=== PATIENT | male | born 1970 | race Caucasian/White ===

== ENCOUNTER 2021-04-24 19:44 | Inpatient (IN) | payer BC ==
[~2021-04-24] VITALS: Ht 185.4 cm; Wt 106.2 kg
[~2021-04-24 19:44] MED LIST: ALBU90OI INH; CODGUAEL PO; LEVFLO500 PO; Mucinex600 MG PO
[2021-04-24 20:21] LABS: BASOPHILS ABSOLUTE AUTO 0.05 K/mm3 (0.00-0.23); BASOPHILS PERCENT AUTO 1 % (0-2); EOSINOPHILS ABSOLUTE AUTO 0.13 K/mm3 (0.00-0.68); EOSINOPHILS PERCENT AUTO 1 % (0-6); Hematocrit 43.7 % (37.0-53.0); Hemoglobin 15.1 g/dL (13.5-17.5); IMMATURE GRAN ABSOLUTE AUTO 0.02 K/mm3 (0.00-0.10); IMMATURE GRAN PERCENT AUTO 0 % (0-1); LYMPHOCYTES ABSOLUTE AUTO 4.31 K/mm3 (0.84-5.20); LYMPHOCYTES PERCENT AUTO 45 % (21-46); MONOCYTES PERCENT AUTO 8 % (4-13); Mean Corpuscular HGB 31.4 pg (26.0-34.0); Mean Corpuscular HGB Conc 34.6 g/dL (31.5-36.5); Mean Corpuscular Volume 91 fL (80-100); Mean Platelet Volume 10.2 fL (9.1-12.4); NEUTROPHILS ABSOLUTE AUTO 4.38 K/mm3 (1.96-9.15); NEUTROPHILS PERCENT AUTO 45 % (41-73); Platelet Count 255 K/mm3 (150-400); RDW Coefficient Variation 12.7 % (11.7-14.2); RDW Standard Deviation 42.6 fL (35.1-46.3); Red Blood Cell Count 4.81 M/mm3 (4.30-5.90); White Blood Cell Count 9.69 K/mm3 (4.00-11.30)
[2021-04-24 20:41] LABS: Alanine Aminotransfer (ALT/SGP 33 U/L (12-78); Albumin, Blood 3.5 g/dL (3.4-5.0); Alk Phos 49 U/L (50-136); Anion Gap 7 mmol/L (6-16); Aspartate Aminotrans (AST/SGOT 25 U/L (12-37); Bilirubin, Total 0.5 mg/dL (0.1-1.0); Blood Urea Nitrogen 14 mg/dL (8-24); Bun/Creatinine Ratio 12.5 (12.0-20.0); CO2, Blood 27 mmol/L (21-32); Calcium, Blood 8.8 mg/dL (8.5-10.1); Chloride, Blood 105 mmol/L (98-108); Creatinine, Blood 1.12 mg/dL (0.60-1.20); Globulin, Blood 3.5 g/dL (2.2-4.0); Glomerular Filtration Rate >60 (60-); Glucose, Blood 122 mg/dL (70-99); Potassium, Blood 3.3 mmol/L (3.5-5.5); Sodium, Blood 139 mmol/L (136-145); Troponin I 0.019 ng/mL (0.000-0.040)
[2021-04-24 20:56] LABS: PCO2 Arterial 36.8 mmHg (35-45); PO2 Arterial 119 mmHg (80-100); pH Blood Arterial 7.27 (7.35-7.45)
[2021-04-24 21:11] LABS: SARS-Cov-2 (COVID-19) PCR, MMC NEGATIVE (NEGATIVE)
--- NOTE | 2021-04-24 22:10 | NUR ---
PT ARRIVED TO ICU FROM [facility] VIA ICU BED. PT RECEIVED STENT TO PROXIMAL LAD, R GROIN SITE CDI. PT REMINDED ABOUT NEED TO LAY FLAT FOR 6 HOURS POST PROCEDURE, STRUGGLING TO GET COMFORTABLE. PILLOWS USED TO HELP TURN PT. PT ALERT AND ORIENTED. STATES CHEST PAIN 08/27. ARRIVED ON RA, SPO2 >90%. HR 70-80'S SINUS ON MONITOR, SBP 115'S. ABD SOFT, ACTIVE BOWEL TONES. URINAL AT BEDSIDE. PULSES PALPABLE IN ALL EXTREMITIES, CAP REFILL WNL. PT VERY ANXIOUS ABOUT HOSPITALIZATION. DENIES NEEDS AT THIS TIME. CALL LIGHT WITHIN REACH.
[2021-04-24 22:42] LABS: BASOPHILS ABSOLUTE AUTO 0.05 K/mm3 (0.00-0.23); BASOPHILS PERCENT AUTO 0 % (0-2); EOSINOPHILS ABSOLUTE AUTO 0.04 K/mm3 (0.00-0.68); EOSINOPHILS PERCENT AUTO 0 % (0-6); Hematocrit 42.3 % (37.0-53.0); Hemoglobin 14.6 g/dL (13.5-17.5); IMMATURE GRAN ABSOLUTE AUTO 0.05 K/mm3 (0.00-0.10); IMMATURE GRAN PERCENT AUTO 0 % (0-1); LYMPHOCYTES ABSOLUTE AUTO 1.22 K/mm3 (0.84-5.20); LYMPHOCYTES PERCENT AUTO 10 % (21-46); MONOCYTES ABSOLUTE AUTO 0.55 K/mm3 (0.16-1.47); MONOCYTES PERCENT AUTO 4 % (4-13); Mean Corpuscular HGB 31.5 pg (26.0-34.0); Mean Corpuscular HGB Conc 34.5 g/dL (31.5-36.5); Mean Corpuscular Volume 91 fL (80-100); Mean Platelet Volume 10.1 fL (9.1-12.4); NEUTROPHILS ABSOLUTE AUTO 10.95 K/mm3 (1.96-9.15); NEUTROPHILS PERCENT AUTO 85 % (41-73); Platelet Count 227 K/mm3 (150-400); RDW Coefficient Variation 12.8 % (11.7-14.2); RDW Standard Deviation 42.4 fL (35.1-46.3); Red Blood Cell Count 4.64 M/mm3 (4.30-5.90); White Blood Cell Count 12.86 K/mm3 (4.00-11.30)
[2021-04-24 22:50] LABS: International Normalized Ratio 1.08; Prothrombin Time Results 11.3 Sec (9.7-11.5)
[2021-04-24 23:08] LABS: Anion Gap 6 mmol/L (6-16); Blood Urea Nitrogen 14 mg/dL (8-24); CO2, Blood 28 mmol/L (21-32); Calcium, Blood 8.6 mg/dL (8.5-10.1); Chloride, Blood 104 mmol/L (98-108); Creatinine, Blood 1.08 mg/dL (0.60-1.20); Glomerular Filtration Rate >60 (60-); Glucose, Blood 141 mg/dL (70-99); Potassium, Blood 3.6 mmol/L (3.5-5.5); Sodium, Blood 138 mmol/L (136-145)
[2021-04-24 23:09] LABS: CPK Creatine Kinase 3637 U/L (39-308)
[2021-04-24 23:23] LABS: Creatine Kinase MB Index 2.9 (0.0-4.0)
--- NOTE | 2021-04-25 05:51 | NUR ---
SHIFT SUMMARY PT HAD MINIMAL SLEEP SINCE ARRIVAL TO UNIT. COMPLAINTS OF BACK PAIN FROM LAYING IN BED, ATTEMPTS MADE TO REPOSITION USING PILLOWS UNSUCCESSFUL. PRN FENTANYL GIVEN ONCE THIS SHIFT. PT CURRENTLY NPO, TOLERATING OCCASIONAL SIPS OF WATER. HR 70-80'S SINUS ON MONITOR, SBP 130-140'S. R GROIN SITE REMAINS CDI. PULSES PALPABLE IN ALL EXTREMITIES, CAP REFILL WNL, ABLE TO MOVE ALL EXTREMITIES. PT ANXIOUS WITH HOSPITALIZATION. COMPLAINTS OF 2-3/10 DULL, NAGGING CHEST PAIN.
[2021-04-25 06:53] LABS: Alanine Aminotransfer (ALT/SGP 105 U/L (12-78); Albumin, Blood 3.5 g/dL (3.4-5.0); Alk Phos 51 U/L (50-136); Aspartate Aminotrans (AST/SGOT 629 U/L (12-37); Bilirubin, Direct 0.1 mg/dL (0.0-0.3); Bilirubin, Indirect 0.4 mg/dL (0.1-0.7); Bilirubin, Total 0.5 mg/dL (0.1-1.0); CHOL/HDL RATIO 4.7; Cholesterol 212 mg/dL (50-200); Creatinine, Blood 0.91 mg/dL (0.60-1.20); Globulin, Blood 3.5 g/dL (2.2-4.0); Glutamyl Transpeptidase, GGT 48 U/L (15-85); HDL Cholesterol 45 mg/dL (>39); LDL/HDL RATIO 3.1; Low Density Lipoprotein Chol 139 mg/dL (0-110); Thyroid Stimulating Hormone 0.213 uIU/mL (0.360-4.800); Triglycerides 140 mg/dL (30-160); Very Low Density Lipoprot Chol 28 mg/dL (6-32)
[2021-04-25 07:33] LABS: Creatine Kinase MB 181.9 ng/mL (0.0-3.6); Creatine Kinase MB Index 3.6 (0.0-4.0)
--- NOTE | 2021-04-25 08:10 | NUR ---
INITIAL ASSESSMENT PATIENT ALERT AND ORIENTED X 4, AFEBRILE. NO COMPLAINTS OF PAIN. PATIENT ON RA WHILE AWAKE AND ON 2 L NC WITH SLEEP DESATS INTO MID 80S WHILE SLEEPING. LUNGS CLEAR. PATIENT IN SR, HR 70S TO 80S. SBP IN THE 140S. GI WNL. WNL. R GROIN SPOOL CARRIER ACCESS SITE NOTED; TEGADERM IN PLACE. NO BLEEDING NOTED. SMALL HEMATOMA NOTED. SITE TENDER. IVS FLUSHED AND SALINE LOCKED. BED LOW, CALL LIGHT IN REACH. WILL CONTINUE TO MONITOR PATIENT FREQUENTLY THROUGHOOUT SHIFT.
--- NOTE | 2021-04-25 09:15 | NUR ---
DR. GODOY AND DR. CRAIN IN TO SEE PATIENT. INFORMED THAT PATIENT HAD 3 RUNS OF VTACH ON UNDERWEAR WELTER PER UNDERWEAR WELTER RN. INFORMED THAT PATIENT DESATTED TO MID 80S WITH SLEEP ON UNDERWEAR WELTER AND THUS PLACED ON 2 L NC DURING SLEEP. INFORMED THAT PATIENT HAS SMALL HEMATOMA AT R GROIN TELEPHONE QUOTATION CLERK ACCESS SITE. ORDER OBTAINED TO INCREASE TO CARDIAC DIET AFTER AM ABD US. ORDER RECEIVED TO CHANGE PATIENT TO PCU STATUS.
[2021-04-25 11:10] LABS: U Amphetamine Screen Not Detected; U Barbituate Screen Not Detected; U Benzodiazapine Screen DETECTED; U Buprenorphine Screen Not Detected; U Cannabinoids Screen Not Detected; U Cocaine Screen Not Detected; U Methadone Screen Not Detected; U Methamphetamine Screen Not Detected; U Opiates Screen DETECTED; U Oxycodone Screen Not Detected; U Phencyclidine Screen Not Detected; U Propoxyphene Screen Not Detected
--- NOTE | 2021-04-25 12:00 | NUR ---
PATIENT HAS TEMP OF 99.6 DEGREES FAHRENHEIT. PATIENT STATES HE JUST DRANK HOT COFFEE. HR IN THE 80S. SBP 150S. R GROIN SITE STILL HAS SMALL HEMATOMA BUT DOES FEEL SOFTER THAN LAST CHECK. PATIENT WALKING AROUND SBA WITHOUT ANY DIFFICULTY OR INCREASE IN SOB/ PAIN. NO OTHER ACUTE CHANGES TO NOTE ON AT THIS TIME. WILL CONTINUE TO MONITOR.
--- NOTE | 2021-04-25 14:23 | NUR ---
SHIFT SUMMARY PATIENT REMAINED ALERT AND ORIENTED X 4. PATIENT HAD MAX TEMP OF 99.6 DEGREES FAHRENHEIT BUT STATED THAT IT WAS PROBABLY BECAUSE HE "HAD HOT COFFEE". PATIENT SATTING 90% AND GREATER ON RA WHILE AWAKE. PATIENT IN SR, HR 70S TO 80S. SBP 140S TO 150S. NO BM THIS SHIFT. PATIENT HAS GOOD APPETITE AND HAS TOLERATED CARDIAC DIET WELL. WNL; PATIENT EITHER USES URINAL OR WALKS SBA TO TOILET. R GROIN SITE REMAINS WITH SMALL HEMATOMA BUT IS SLIGHTLY IMPROVED FROM THIS AM. IVS REMAINED SALINE LOCKED. ECHO PERFORMED THIS SHIFT. ABD US PERFORMED THIS SHIFT. U-TOX SENT TO LAB. NICODERM PATCH APPLIED TO HELP WITH CIGARETTE AND CHEW TOBACCO CRAVINGS. SPOUSE IN VISITING WITH PATIENT AT THIS TIME. PATIENT WILL BE TRANSFERRING TO PCU, ROOM 8 SHORTLY.
[2021-04-25 14:35] LABS: Alanine Aminotransfer (ALT/SGP 107 U/L (12-78); Albumin, Blood 3.5 g/dL (3.4-5.0); Alk Phos 51 U/L (50-136); Anion Gap 6 mmol/L (6-16); Aspartate Aminotrans (AST/SGOT 512 U/L (12-37); Bilirubin, Total 0.7 mg/dL (0.1-1.0); Blood Urea Nitrogen 14 mg/dL (8-24); Bun/Creatinine Ratio 14.6 (12.0-20.0); CO2, Blood 27 mmol/L (21-32); Calcium, Blood 8.9 mg/dL (8.5-10.1); Chloride, Blood 108 mmol/L (98-108); Creatinine, Blood 0.96 mg/dL (0.60-1.20); Globulin, Blood 3.5 g/dL (2.2-4.0); Glomerular Filtration Rate >60 (60-); Glucose, Blood 133 mg/dL (70-99); Potassium, Blood 4.2 mmol/L (3.5-5.5); Sodium, Blood 141 mmol/L (136-145); Thyroxine (T4) 8.5 ug/dL (4.5-12.1); Triiodothyronine, Free 2.34 pg/mL (2.18-3.98)
--- NOTE | 2021-04-25 14:49 | NUR ---
PATIENT TRANSFERRED TO PCU, ROOM 08. SPOUSE FOLLOWED.
[2021-04-25 15:26] LABS: Creatine Kinase MB 99.1 ng/mL (0.0-3.6); Creatine Kinase MB Index 2.8 (0.0-4.0)
--- NOTE | 2021-04-25 15:45 | NUR ---
ASSUMPTION OF CARE NOTE PT ALERT AND ORIENTED X4. ELVIS W/ PT UPON TRANSFER AND WITH PT NOW. SPO2>90% RA, BP 141/102. TOA APPROX. 1520. PT DENIED CHEST PAIN. HE IS PLEASANT AND COOPERATIVE WITH CARE. RIGHT GROIN SITE IS DRESSED W/ CHG DRESSING. SMALL HEMATOMA PER REPORT HAS BEEN UNCHANGED ALL DAY. SITE FIRM UPON PALPATION. PT REPORTS SLIGHT TENDERNESS TO SITE. PEDAL PULSES STRONG BILATERALLY. WILL CONTINUE TO MONITOR.
--- NOTE | 2021-04-25 17:35 | NUR ---
SHIFT SUMMARY PT ALERT AND ORIENTED X 4. PLEASANT AND COOPERATIVE W/ CARE. IS AT BEDSIDE. NO CHEST PAIN REPORTED. PT ON RA, SPO2 >90%, VITAL SIGNS STABLE. THIS NURSE HAD DISCUSSION W/ PATIENT ABOUT SMOKING CESSATION AND PT APPEARED TO BE RECEPTIVE TO INFORMATION. PT IS ABLE TO AMBULATE ON OWN TO BATHROOM PER REPORT BUT HAS REMAINED IN BED SINCE TOA TO PCU ROOM. PT EATING DINNER NOW AND NO EVIDENCE OF NAUSEA. NO OTHER ACUTE CHANGES NOTED. WILL CONTINUE TO MONITOR UNTIL REPORT GIVEN.
--- NOTE | 2021-04-25 18:27 | NUR ---
ASSESSMENT NOTE RIGHT GROIN ACCESS SITE REMAINS COVERED W/ CHG DRESSING, HEMATOMA FELT UPON PALPATION. HEMATOMA WAS PRESENT PER REPORT FROM ICU NURSE. PT REPORTED TENDERNESS AT SITE BUT NOT PAINFUL.
[2021-04-26 04:10] LABS: BASOPHILS ABSOLUTE AUTO 0.04 K/mm3 (0.00-0.23); BASOPHILS PERCENT AUTO 0 % (0-2); EOSINOPHILS ABSOLUTE AUTO 0.07 K/mm3 (0.00-0.68); EOSINOPHILS PERCENT AUTO 1 % (0-6); Hematocrit 40.8 % (37.0-53.0); Hemoglobin 14.1 g/dL (13.5-17.5); IMMATURE GRAN ABSOLUTE AUTO 0.05 K/mm3 (0.00-0.10); IMMATURE GRAN PERCENT AUTO 1 % (0-1); LYMPHOCYTES PERCENT AUTO 17 % (21-46); MONOCYTES ABSOLUTE AUTO 0.63 K/mm3 (0.16-1.47); MONOCYTES PERCENT AUTO 6 % (4-13); Mean Corpuscular HGB 31.5 pg (26.0-34.0); Mean Corpuscular HGB Conc 34.6 g/dL (31.5-36.5); Mean Corpuscular Volume 91 fL (80-100); Mean Platelet Volume 10.6 fL (9.1-12.4); NEUTROPHILS ABSOLUTE AUTO 7.58 K/mm3 (1.96-9.15); NEUTROPHILS PERCENT AUTO 75 % (41-73); Platelet Count 189 K/mm3 (150-400); RDW Standard Deviation 43.2 fL (35.1-46.3); Red Blood Cell Count 4.47 M/mm3 (4.30-5.90); White Blood Cell Count 10.07 K/mm3 (4.00-11.30)
[2021-04-26 04:32] LABS: Alanine Aminotransfer (ALT/SGP 79 U/L (12-78); Albumin/Globulin Ratio 0.9 (0.8-1.8); Alk Phos 44 U/L (50-136); Anion Gap 5 mmol/L (6-16); Aspartate Aminotrans (AST/SGOT 281 U/L (12-37); Blood Urea Nitrogen 11 mg/dL (8-24); Bun/Creatinine Ratio 10.8 (12.0-20.0); CO2, Blood 28 mmol/L (21-32); Calcium, Blood 8.6 mg/dL (8.5-10.1); Chloride, Blood 107 mmol/L (98-108); Creatinine, Blood 1.02 mg/dL (0.60-1.20); Globulin, Blood 3.3 g/dL (2.2-4.0); Glomerular Filtration Rate >60 (60-); Glucose, Blood 146 mg/dL (70-99); Potassium, Blood 3.6 mmol/L (3.5-5.5); Sodium, Blood 140 mmol/L (136-145); Total Protein, Blood 6.3 g/dL (6.4-8.2)
--- NOTE | 2021-04-26 05:59 | NUR ---
Shift Summary Pt c/o lack of sleep from the previous night and requested as little interaction as possible to promote sleep, every attempt was made to cluster care to minimize interruptions. Pt denied chest pain, pain, and discomfort. Pt ambulated self to restroom. Pt requested a snack at approximately 0200, but otherwise was able to sleep for a majority of the night. VSS, R. femoral site unchanged, no acute changes noted.
--- NOTE | 2021-04-26 10:58 | NUR ---
ASSUMPTION OF CARE NOTE/AM NOTE PT IS ALERT AND ORIENTED X 4. HE IS PLEASANT AND COOPERATIVE WITH CARE. PT ON RA, SPO2 UPPER 90'S. PT ON TELE AND PER REPORT IS SR 73. PT ABLE TO AMBULATE TO BATHROOM ON OWN AND TOOK SHOWER. PT AMBULATED THROUGH HALLS THIS AM. DURING AMBULATION IN HALLS, ST ELEVATION REPORTED FROM TELE; EKG DONE SHOWING NORMAL SR AND IS IN CHART. PT HAS DENIED CHEST PAIN/PRESSURE WELL SHORTNESS OF BREATH. PT DENIED ABDOMINAL DISCOMFORT, NAUSEA/VOMITTING. PT NOW MEDICAL STATUS W/ TELE, ON CARDIAC LOW SODIUM DIET, AND HAS RIGHT IV LOCATED AC THAT IS SALINE LOCKED. WILL CONTINUE TO MONITOR.
--- NOTE | 2021-04-26 15:38 | NUR ---
STENT CARD SENT HOME WITH WELL INFORMATION ON ANGIO SEAL. PATIENT AND EDUCATED ON STENT CARD.
--- NOTE | 2021-04-26 15:43 | NUR ---
IN HOUSE TRANSFER NOTE THIS NURSE GAVE REPORT TO OSMAN ALVARADO RN AT APPROX 1530 AND PT LEFT PCU ROOM TO MEDICAL FLOOR AT 1543. PT LEFT ROOM AMBULATING ON OWN AND WAS ACCOMPANIED BY ELVIS AND ROSSANA BARROW. ALL OF PT BELONGINGS WERE WITH PATIENT AND PATIENT STENT CARD WAS GIVEN TO TO KEEP SO TO TAKE HOME. PT INSTRUCTED ON IMPORTANCE OF KEEPING STENT CARD ON HIS PERSONS WHEN DISCHARGED. CHG DRESSING WAS REMOVED FROM RIGHT ANGIO ACCESS SITE AND REMAINS OPEN TO AIR. RIGHT ANGIO ACCESS SITE HAD MINOR BRUISING AND SMALL HEMATOMA THAT REMAINED UNCHANGED FROM PREVIOUS ASSESSMENT. PT DENIED CHEST PAIN/PRESSURE AND WAS STABLE UPON TRANSFER.
--- NOTE | 2021-04-26 18:08 | NUR ---
SHIFT SUMMARY PT AXO, PLEASANT AND COOPERATIVE WITH CARE. UP AD ROSSY IN ROOM WITH STEADY GAIT. TRANSFERRED FROM [facility] THIS SHIFT. DENIES PAIN, SOB AND NV. BED IN LOW POSITION, CALL LIGHT WITHIN REACH. NO CHANGES SINCE TRANSFER. PT EAGER TO BE DISCHARGED HOME.
--- NOTE | 2021-04-27 06:13 | NUR ---
PATIENT IS ALERT AND ORIENTED X4. PATIENT DENIES PAIN, CHEST PAIN, SOB, PALPITATION. PATIENT IS INDEPENDENT IN HIS ROOM, REPORTED VOIDED X3, DENIES ANY BM. VITAL SIGNS WNL. WILL CONTINUE TO MONITOR.
[2021-04-27 09:12] LABS: Alanine Aminotransfer (ALT/SGP 61 U/L (12-78); Albumin, Blood 3.2 g/dL (3.4-5.0); Albumin/Globulin Ratio 0.9 (0.8-1.8); Alk Phos 49 U/L (50-136); Anion Gap 4 mmol/L (6-16); Aspartate Aminotrans (AST/SGOT 139 U/L (12-37); Bilirubin, Total 0.9 mg/dL (0.1-1.0); Blood Urea Nitrogen 13 mg/dL (8-24); Bun/Creatinine Ratio 13.1 (12.0-20.0); CO2, Blood 28 mmol/L (21-32); Calcium, Blood 8.8 mg/dL (8.5-10.1); Chloride, Blood 107 mmol/L (98-108); Globulin, Blood 3.5 g/dL (2.2-4.0); Glomerular Filtration Rate >60 (60-); Glucose, Blood 108 mg/dL (70-99); Sodium, Blood 139 mmol/L (136-145); Total Protein, Blood 6.7 g/dL (6.4-8.2)
[2021-04-27] MEDS ORDERED: ASPI81CH PO (11:52)
[2021-04-27] MEDS ORDERED: APHEN325 M1 PO (11:52)
[2021-04-27] MEDS ORDERED: ATOR40TA PO (11:53)
[2021-04-27] MEDS ORDERED: CARV6.25 PO (11:53)
[2021-04-27] MEDS ORDERED: LISI5 PO (11:54)
[2021-04-27] MEDS ORDERED: POTCHL20ER PO (11:54)
[2021-04-27] MEDS ORDERED: NITR.4SL SL (11:54)
[2021-04-27] MEDS ORDERED: TICA90TA PO (11:55)
[2021-04-27] MEDS ORDERED: SPIR25 PO (11:55)
--- NOTE | 2021-04-27 12:15 | NUR ---
NEW D/C ORDERS RECIEVED, REVIEWED AND IMPLEMENTED. IV D/C INTACT, PT TOLERATED WELL. D/C INSTRUCTIONS AND HOME MEDS REVIEWED. PT VERBALIZED UNDERSTANDING AND AGREES TO F/U W/ SETTING UP PCP. PT'S RX FAXED TO PTS PHARMACY OF CHOICE. PT ESCORTED OUT BY [facility] AND D/C HOME VIA PRIVATE VEHICLE.
[2021-05-01 20:09] LABS: SALIVARY AMYL. CALC. 28 U/L (11-83)
== END 2021-04-27 12:22 | disposition home or self-care (01) | DRG 247 ==
LOC: ER 19:44 → ICUE 20:12 → MEDS 20:12 → ICUW 20:12 → ICUE 21:59 → PCU 04-25 15:02 → MEDS 04-26 15:43 → ENPENDDIS 04-27 11:24 → MEDS 04-27 12:22
PROVIDERS: Emergency Medicine; Family Medicine; Internal Medicine; ADMIT Internal Medicine Cardiovascular Disease
PROC: 027135Z Dilation of Coronary Artery, Two Arteries with Two Drug-eluting Intraluminal Devices, Percutaneous Approach (ICD-10-PCS; principal; 2021-04-24)
PROC: 4A023N7 Measurement of Cardiac Sampling and Pressure, Left Heart, Percutaneous Approach (ICD-10-PCS; 2021-04-24)
PROC: B2111ZZ Fluoroscopy of Multiple Coronary Arteries using Low Osmolar Contrast (ICD-10-PCS; 2021-04-24)
PROC: HZ2ZZZZ Detoxification Services for Substance Abuse Treatment (ICD-10-PCS; 2021-04-24)
DX: I21.09 ST elevation (STEMI) myocardial infarction involving other coronary artery of anterior wall (principal); Z20.822 Contact with and (suspected) exposure to COVID-19; F17.210 Nicotine dependence, cigarettes, uncomplicated; R10.13 Epigastric pain; I25.10 Atherosclerotic heart disease of native coronary artery without angina pectoris; R77.8 Other specified abnormalities of plasma proteins; Z98.890 Other specified postprocedural states; Z71.6 Tobacco abuse counseling; Z72.89 Other problems related to lifestyle
CPT/HCPCS: 36415; 71045; 76700; 80048; 80053; 80061; 80076; 82550; 82553; 82565; 82803; 82947; 82977; 83036; 83690; 83880; 84436; 84443; 84481; 84484; 85025; 85347; 85610; 85730; 86141; 92920; 92921; 93005; 93010; 93458; 94762; 96374-59; 96375-59; 99152; 99153; 99285-25; A9270; C1725; C1760; C1769; C1874; C1887; C1894; C8929; C9113; C9600; C9606; J0282; J0461; J0690; J1200; J1644; J1650; J2250; J2270; J2405; J3010; J7030; Q9957; Q9967; U0004

== ENCOUNTER → 2024-11-20 | Outpatient (CLI) | payer OTHER ==
[~2024-11-20] MED LIST changes: +APHEN325 M1 PO; +ASPI81CH PO; +ATOR40TA PO; +CARV6.25 PO; +LISI5 PO; +NITR.4SL SL; +POTCHL20ER PO; +SPIR25 PO; +TICA90TA PO
[2024-11-20 19:43] LABS: BASOPHILS ABSOLUTE AUTO 0.04 K/mm3 (0.00-0.23); BASOPHILS PERCENT AUTO 1 % (0-2); EOSINOPHILS ABSOLUTE AUTO 0.07 K/mm3 (0.00-0.68); EOSINOPHILS PERCENT AUTO 1 % (0-6); Hematocrit 45.1 % (37.0-53.0); Hemoglobin 15.7 g/dL (13.5-17.5); IMMATURE GRAN ABSOLUTE AUTO 0.02 K/mm3 (0.00-0.10); IMMATURE GRAN PERCENT AUTO 0 % (0-1); LYMPHOCYTES ABSOLUTE AUTO 2.44 K/mm3 (0.84-5.20); LYMPHOCYTES PERCENT AUTO 30 % (21-46); MONOCYTES ABSOLUTE AUTO 0.56 K/mm3 (0.16-1.47); MONOCYTES PERCENT AUTO 7 % (4-13); Mean Corpuscular HGB 32.4 pg (26.0-34.0); Mean Corpuscular HGB Conc 34.8 g/dL (31.5-36.5); Mean Corpuscular Volume 93 fL (80-100); Mean Platelet Volume 10.8 fL (9.1-12.4); NEUTROPHILS ABSOLUTE AUTO 4.99 K/mm3 (1.96-9.15); NEUTROPHILS PERCENT AUTO 62 % (41-73); Platelet Count 225 K/mm3 (150-400); RDW Coefficient Variation 13.2 % (11.7-14.2); RDW Standard Deviation 45.1 fL (35.1-46.3); Red Blood Cell Count 4.85 M/mm3 (4.30-5.90); White Blood Cell Count 8.12 K/mm3 (4.00-11.30)
[2024-11-20 20:31] LABS: Alanine Aminotransfer (ALT/SGP 40 U/L (12-78); Albumin/Globulin Ratio 1.4 (0.8-1.8); Alk Phos 55 U/L (50-136); Anion Gap 11 mmol/L (3-11); Aspartate Aminotrans (AST/SGOT 24 U/L (12-37); Bilirubin, Total 0.9 mg/dL (0.1-1.0); Blood Urea Nitrogen 10 mg/dL (8-24); CHOL/HDL RATIO 2.4; CO2, Blood 25 mmol/L (21-32); Calcium, Blood 8.9 mg/dL (8.5-10.1); Chloride, Blood 104 mmol/L (98-108); Cholesterol 123 mg/dL (50-200); Globulin, Blood 2.8 g/dL (2.2-4.0); Glucose, Blood 146 mg/dL (70-99); HDL Cholesterol 52 mg/dL (>39); LDL/HDL RATIO 1.1; Low Density Lipoprotein Chol 58 mg/dL (0-110); Potassium, Blood 3.3 mmol/L (3.5-5.5); Sodium, Blood 137 mmol/L (136-145); Total Protein, Blood 6.8 g/dL (6.4-8.2); Triglycerides 67 mg/dL (30-160); Very Low Density Lipoprot Chol 13 mg/dL (6-32)
[2024-11-20 20:40] LABS: Bun/Creatinine Ratio 10.4 (12.0-20.0); Creatinine, Blood 0.96 mg/dL (0.60-1.20); Glomerular Filtration Rate 94 (60-); Thyroid Stimulating Hormone 0.603 uIU/mL (0.360-4.800)
== END ==
LOC: LAB 18:40 → LAB SHORT 18:40
PROVIDERS: Family Medicine
DX: Z00.00 Encounter for general adult medical examination without abnormal findings (principal); E78.49 Other hyperlipidemia; N42.9 Disorder of prostate, unspecified; R53.83 Other fatigue
CPT/HCPCS: 80053; 80061; 84153; 84443; 85025